=== PATIENT | female | born 1970 | race Two or more races ===

== ENCOUNTER 2018-03-04 06:14 | Emergency (ER) | payer SELFPAY ==
[~2018-03-04] VITALS: Ht 157.5 cm; Wt 73.5 kg
[2018-03-04 06:32] VITALS: Ht 157.5 cm; Wt 73.5 kg
[2018-03-04 07:47] LABS: BASOPHIL % 0.5 % (0-2); PLATELET COUNT 235 x10^3mcL (130-400); RED CELL DISTRIBUTION WIDTH 13.6 % (11.5-14.5)
[2018-03-04 07:52] LABS: CALCIUM 8.3 mg/dL (8.5-10.1); CARBON DIOXIDE 27.7 mmol/L (21-32); CHLORIDE SERUM 105 mmol/L (98-107); CREATININE SERUM 0.7 mg/dL (0.6-1.0); GFR1 > 60 mL/min; GLUCOSE SERUM 94 mg/dL (74-106); POTASSIUM SERUM 3.8 mmol/L (3.5-5.1); SODIUM SERUM 138 mmol/L (136-145)
[2018-03-04 07:53] LABS: ALKALINE PHOSPHATASE 105 U/L (46-116); ALT/SGPT 16 U/L (14-59); AST/SGOT 14 U/L (15-37); TOTAL PROTEIN, SERUM 7.6 g/dL (6.4-8.2)
[2018-03-04 07:54] LABS: UA SPECIFIC GRAVITY 1.025 (1.005-1.035); microscopic required? YES; urine erythrocyte 2+ (NEGATIVE)
[2018-03-04 09:22] VITALS: BP 119/58
== END 2018-03-04 09:22 | disposition home or self-care (01) ==
LOC: ED 06:14
PROVIDERS: Emergency Medicine
DX: M25.562 Pain in left knee (principal); R51 Headache
CPT/HCPCS: 36415